=== PATIENT | male | born 1995 | race Hispanic/Latino ===

== ENCOUNTER 2019-01-03 09:02 | Emergency (ER) | payer MEDICAID, OTHER | END 2019-01-03 10:37 | disposition home or self-care (01) | LOC: EDH 09:02 | DX: R03.0 Elevated blood-pressure reading, without diagnosis of hypertension (principal) | CPT/HCPCS: 99281 ==

== ENCOUNTER → 2023-06-01 | Outpatient (CLI) | payer BC | END | disposition home or self-care (01) | LOC: RAH 08:57 | PROVIDERS: ATTEND Surgery | DX: K21.00 Gastro-esophageal reflux disease with esophagitis, without bleeding (principal); K22.70 Barrett's esophagus without dysplasia; K44.9 Diaphragmatic hernia without obstruction or gangrene | CPT/HCPCS: 74240 ==

== ENCOUNTER 2024-05-17 16:01 | Emergency (ER) | payer SELFPAY ==
[~2024-05-17] VITALS: Ht 182.9 cm; Wt 104.3 kg
--- NOTE | 2024-05-17 17:03 | ERN ---
ED Note History of Present Illness Stated Complaint: FINGER INJURY Time Seen by MD: 16:01 Time Seen by Midlevel: 16:01 Dictation: The patient is a 28-year-old male with no significant medical history who presents to the emergency department with complaint of right 4th digit swelling and redness onset Thursday. Patient denies any injury or insect bite. Denies any fevers. 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 Reported Medications Lisinopril (Lisinopril) 20 Mg Tablet, 1 TAB PO DAILY for 30 Days, #30 TAB 0 Refills 05/18/24 Past Medical History RN Note Reviewed/Agreed w/PFSH: Yes Review of System Dictation Constitutional: Negative for fever,chills, and weight loss Eyes: Negative for injury, pain,redness, and discharge ENT: Negative for injury,pain or swelling Cardiovascular: Negative for chest pain, palpitations, and edema Respiratory: Negative for shortness of breath, cough, and wheezing, Abdomen/GI: Negative for abdominal pain, nausea, vomiting, diarrhea, and constipation Back: Negative for injury and pain : Negative for injury, bleeding and discharge MS/Extremity: Positive for right 4th digit swelling and redness Skin: Negative for rash, and discoloration Neuro: Negative for headache, weakness, numbness, tingling, and seizure Psych: Negative for suicide ideation, homicidal ideation, and hallucinations Initial Vital Sign VS Vital Signs Date Time Temp Pulse Resp B/P (MAP) Pulse Ox O2 Delivery O2 Flow Rate FiO2 05/17/24 17:33 98.1 71 20 147/99 97 Room Air 0 05/17/24 18:50 21 Physical Exam Dictation Vital Signs reviewed General Appearance: Alert, oriented x 3, no acute distress, well developed, nourished. Head and Face: non-traumatic. Eyes: PERRL, pink conjunctivas, eyelid no trauma, anterior chamber with arcus senilis. Ears: Pinnas intact and no signs of trauma or erythema ear canals clear and no discharge TM no erythema Nose: No discharge, no bleeding. Oropharynx: Mouth normal, tongue pink. pharynx clear,no erythema, tonsils no exudates, no abscesses noted, mucous membrane moist Neck: Supple, non-tender, no thyromegaly, no masses, no JVD, no bruits Breast:Deferred Chest:No tenderness, no crepitus, no paradoxical movement, no retractions Lungs:Clear, well-ventilated, symmetric, no rales, no wheezing, no rhonchi, no stridor, good breath sounds bilaterally Heart: Regular rate, regular rhythm, no murmur, no gallops Vascular: no peripheral edema, Abdomen: Soft, positive bowel sounds, nondistended, no guarding, nontender, no rebound, no masses no hepatomegaly, no splenomegaly, no Brooks's sign, no hernias. Rectal: Deferred Genital: Deferred Neurological: Normal speech, motor function intact, sensory function intact Musculoskeletal: Neck nontender, full range of motion, back nontender, full range of motion, Extremities: nontender, full range of motion , 4th digit with erythema, swelling , full range of motion, no open wounds cap refill less than 2 seconds Skin: Color pink, dry, no turgor, no rash, no lacerations, no abrasions, no contusions. Lymphatic: Deferred Results (Laboratory/Radiology) Laboratory/Radiology REASON: 4th digit swelling ORDERING PHYSICIAN: ANASTASIA MATA PROCEDURE: FINGER RT - FINGER(S) 2+VWS RT RIGHT FOURTH FINGER RADIOGRAPHS - 2 VIEWS INDICATION: Fourth digit swelling COMPARISON: None FINDINGS: AP, lateral views. No acute fracture or subluxation identified. Subtle subcentimeter lytic lucency within the fourth proximal phalangeal head. Mild to moderate fourth digit soft tissue swelling. No radiopaque foreign body noted. IMPRESSION: Limited history provided. Marrow irregularity involving the third proximal phalangeal head for which dedicated high resolution gadolinium-enhanced MR imaging is advised for further evaluation. This could represent an osteoid osteoma or underlying abscess. Labs Reviewed?: Yes ED Course ED Course Orders Procedure Category Date Status Time Finger(S) 2+Vws Rt RAD 05/17/24 Resulted 16:37 Ketorolac 60mg/2ml PHA 05/17/24 Complete (Toradol 60mg/2ml) 17:00 Ceftriaxone 1g Vial PHA 05/17/24 Complete (Rocephine 1g Inj) 17:00 Current Medications Medications (Trade) Dose Ordered Sig/Isatu Route PRN Reason Start Time Stop Time Status Last Admin Dose Admin Ceftriaxone Sodium (ROCEphine 1G INJ) 1 gm ONCE ONCE IM 05/17/24 17:00 05/17/24 17:34 DC 05/17/24 17:55 Ketorolac Tromethamine (toRADol 60MG/ 2ML) 60 mg ONCE ONCE IM 05/17/24 17:00 05/17/24 17:34 DC 05/17/24 17:55 Vital Signs Date Time Temp Pulse Resp B/P (MAP) Pulse Ox O2 Delivery O2 Flow Rate FiO2 05/17/24 18:50 98.1 70 18 137/89 97 Room Air* 0 21 05/17/24 17:33 98.1 71 20 147/99 97 Room Air 0 Medical Decision Making MDM The patient is a 28-year-old male with no significant medical history who presents to the emergency department with complaint of right 4th digit swelling and redness onset Thursday. Patient denies any injury or insect bite. Denies any fevers. Patient was swelling and erythema to right with digit. X-ray showed concerned for osteosarcoma versus underlying abscess. Discussed case with Dr. Barfield orthopedic on-call. Dr. Ga was evaluated patient in ER. Instructed to follow up in 10 days and start Keflex treatment. If patient has worsened to return to ER. Differential diagnosis: Cellulitis, finger fracture, finger contusion Need for hospitalization: Patient does not meet criteria for hospitalization. There are no social concerns with this patient. DX & DISP Disposition: Discharge Departure Impression: Primary Impression: Swelling of right ring finger Additional Impression: Cellulitis Condition: Stable Scripts Cephalexin Monohydrate (Keflex) 500 Mg Cap 500 MG PO QID for 10 Days, #40 CAP Prov: ANASTASIA MATA [employer] ST[employer] HAND 05/17/24 Additional Instructions: Take your antibiotics as prescribed. You will need to follow up with in 10 days in his office if redness and swelling still present. If symptoms worsen please return to ER and state to cosult ortho FOLLOW-UP WITH PRIMARY CARE PROVIDER IN 1 TO 2 DAYS. TAKE MEDICATIONS DIRECTED HERE IN THE EMERGENCY ROOM. OKAY TO CONTINUE HOME MEDICATIONS UNLESS OTHERWISE DISCUSSED DURING YOUR VISIT IN THE EMERGENCY ROOM TODAY. RETURN TO YOUR NEAREST EMERGENCY ROOM IF SYMPTOMS WORSEN OR IF THERE IS NO IMPROVEMENT. CALL 911 IF YOU NEED IMMEDIATE ASSISTANCE. TAKE TYLENOL OR MOTRIN [id number] NEEDED AND IF NO CONTRAINDICATIONS ARE PRESENT. INCREASE ORAL HYDRATION. A WOUND CULTURE OR URINE CULTURE WAS ORDERED HERE IN THE EMERGENCY ROOM DEPARTMENT PLEASE FOLLOW-UP WITH PRIMARY CARE PROVIDER AND ADVISE THEM TO GET REPEAT PORTS FROM OUR FACILITY. IF YOU HAD ANY RAHEEM WRAP/SPLINTS THAT WERE APPLIED HERE, PLEASE DO NOT REMOVE THEM UNTIL YOU SEE YOUR PRIMARY CARE OR SPECIALTY. Referrals: EVANGELISTA GUTIERREZ (PCP) DEEP BARFIELD MD Time of Disposition: 18:27 I have examined patient, & reviewed all documents, & agreed W/ the Diagnosis, and Plan ANASTASIA MATA May 17, 2024 17:03 JUSTINA FLAHERTY DO May 19, 2024 08:17
--- NOTE | 2024-05-17 17:51 | HMCIMG ---
RIGHT FOURTH FINGER RADIOGRAPHS - 2 VIEWS INDICATION: Fourth digit swelling COMPARISON: None FINDINGS: AP, lateral views. No acute fracture or subluxation identified. Subtle subcentimeter lytic lucency within the fourth proximal phalangeal head. Mild to moderate fourth digit soft tissue swelling. No radiopaque foreign body noted. IMPRESSION: Limited history provided. Marrow irregularity involving the third proximal phalangeal head for which dedicated high resolution gadolinium-enhanced MR imaging is advised for further evaluation. This could represent an osteoid osteoma or underlying abscess.
[2024-05-17] MEDS: ketOROlac 60 MG VIAL (30MG/ML) IM ONE (17:55)
[2024-05-17] MEDS: cefTRIAXone 1G VIAL IM ONE (17:55)
[2024-05-17] MEDS ORDERED: CEPH500B PO (18:31)
--- NOTE | 2024-05-17 18:34 | NUR ---
DR MATTHEWS AT PT SIDE
[2024-05-17 18:50] VITALS: BP 137/89; PULSE 70; RESP 18; TEMP 98.1; O2SAT 97
[2024-05-18] MEDS ORDERED: LISI20TA24 PO (23:09)
== END 2024-05-17 18:53 | disposition home or self-care (01) ==
LOC: EDH 16:01
DX: L03.011 Cellulitis of right finger (principal); Z79.899 Other long term (current) drug therapy
CPT/HCPCS: 99284; 73140; 96372 ×2; J1885; J0696

== ENCOUNTER 2024-05-18 12:51 | Inpatient (IN) | payer SELFPAY ==
[~2024-05-18] VITALS: Ht 182.9 cm; Wt 105.7 kg
[2024-05-18] VITALS (18 sets, daily range): BP systolic 115–150; BP diastolic 55–90; PULSE 63–85; RESP 13–20; TEMP 97–97.9
[~2024-05-18 12:51] MED LIST: CEPH500B PO
[2024-05-18] MEDS ORDERED: VANCOMYCIN KIT 1 GM/250 ML IV.KIT IV ONE (13:00)
--- NOTE | 2024-05-18 13:07 | ERN ---
General Chief Complaint: Finger Injury Stated Complaint: FINGER PAIN Time Seen by MD: 12:56 History of Present Illness Initial Comments 28-year-old male, otherwise healthy, presents for right 4th digit swelling and redness for five days now. Patient denies any injury or insect bites. 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 He denies any trauma. He was evaluated at this facility yesterday with stable vital signs. The x-ray did show an irregularity. Dr. Woodard was consulted. The patient was given a dose of Ancef yesterday and he took cephalexin last night this morning. The patient returns today because reports that the swelling is getting worse and the pain is getting worse. 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 HEAD/FACE: No signs of trauma. EENT: No eye pain, no blurred vision, no tearing, no double vision, no ear pain, no ear discharge, no nose pain, no nasal congestion, no throat pain, no throat swelling, no mouth pain. RESPIRATORY: No cough, no orthopnea, no SOB, no stridor, no wheezing. CARDIOVASCULAR: No chest pain, no edema, no palpitations, no syncope. GASTROINTESTINAL/ABDOMINAL: No abdominal pain, no constipation, no diarrhea, no nausea, no vomiting. GENITOURINARY: No abnormal discharge, no dysuria, no frequent urination, no hematuria. No complaints of pain in the genitals. MUSCULOSKELETAL: Right 4th digit finger pain. INTEGUMENTARY: No change in color, no change in hair/nails, no dryness, no lesion, no lumps, no rash. NEUROLOGICAL/PSYCH: No anxiety, not depressed, no emotional problem, no headache, no numbness, no pre-existing deficit, no history of seizures, no tremors, no weakness. HEMATOLOGIC/LYMPHATIC: Not anemic, no history of blood clots, no apparent bleeding, no bruising, glands not swollen. All Systems Negative, Except as Noted. Physical Exam Physical Exam Dictation VITAL SIGNS: Reviewed. GENERAL APPEARANCE: Alert, oriented x3, no acute distress, obese. HEAD AND FACE: Non-traumatic. EYES: PERRL, pink conjunctivas, eyelid no trauma, anterior chamber clear. EARS: Pinnas intact and no signs of trauma or erythema. Ear canals clear and no discharge. TMs no erythema. NOSE: No discharge, no bleeding. OROPHARYNX: Mouth normal, teeth no caries, tongue pink. Pharynx clear, no erythema. Tonsils no exudates, no abscesses noted. Mucous membrane moist. NECK: Supple, non-tender, no thyromegaly, no masses, no JVD, no bruits. BREAST: Deferred. CHEST: No tenderness, no crepitus, no paradoxical movement, no retractions. LUNGS: Clear, well-ventilated, symmetric, no rales, no wheezing, no rhonchi, no stridor, good breath sounds bilaterally. HEART: Regular rate, regular rhythm, no murmur, no gallops. VASCULAR: No peripheral edema. ABDOMEN: Soft, positive bowel sounds, nondistended, no guarding, nontender, no rebound, no masses no hepatomegaly, no splenomegaly, no Brooks's sign, no hernias. RECTAL: Deferred. GENITAL: Deferred. NEUROLOGICAL: Normal speech, gross motor function intact, gross sensory function intact. MUSCULOSKELETAL: Erythema tenderness and pain to the right 4th digit dorsal side increase with palpation and movement, no pain or tenderness along the flexor side. Neurovascularly intact distally. No obvious open wounds or ulce rations. EXTREMITIES: Nontender, full range of motion. SKIN: Color pink, dry, no turgor, no rash, no lacerations, no abrasions, no contusions. LYMPHATICS: Deferred. MDM CC: Finger pain/ infection Historian: Patient Comorbidities: None Limitations by social determinants of health: None Differential diagnosis: Infection versus other Vital signs: Stable remained stable in the ER Consultation: Dr. Woodard. He recommends admission for an MRI. Treatment in ED: IV fluids, IV antibiotics Plan: Admission ED Course Vital Signs Date Time Temp Pulse Resp B/P (MAP) Pulse Ox O2 Delivery O2 Flow Rate FiO2 05/18/24 12:52 98.8 66 16 153/95 95 Room Air 0 DX & DISP Disposition: Inpatient Departure Impression: Primary Impression: Finger infection Condition: Stable Referrals: EVANGELISTA GUTIERREZ (PCP) JUSTINA FLAHERTY DO May 18, 2024 13:07
--- NOTE | 2024-05-18 13:44 | HP ---
[facility] HISTORY AND PHYSICAL Date of Service: May 18, 2024 Time of Service: 13:44 HISTORY OF PRESENT ILLNESS: Date of service: 05/18/2024, patient was seen in ER room one 28-year-old male with no significant past medical history who presented to the ER for further evaluation of 4th digit swelling and redness of the right hand ongoing for the past 4-5 days. Patient was seen in the ER yesterday and receiv ed a dose of IV Ancef and was discharged on a course of Keflex. Patient denies any trauma, injury, animal bite to the 4th finger. 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 Denies significant smoking, alcohol consumption or illicit drug use. Patient was seen by Dr. Barfield yesterday with recommendations for antibiotic therapy for management of cellulitis. Patient states that pain has progressively worsened and is worse with flexion of the finger. Redness and swelling has worsened as well. Patient denies any family history of malignancy. On presentation to the hospital, patient was noted to be afebrile with temperature of 98.8 F, blood pressure of 153/95. Patient had a x-ray of the fingers done yesterday where patient was noted to have marrow irregularity involving the 3rd proximal phalangeal head with recommendations for MRI. Patient will be admitted and will receive broad-spectrum IV antibiotics with vancomycin/cefepime, MRI of the hand will be obtained. Consultation with Dr. Barfield with Orthopedics will be requested as well as Infectious Disease. REVIEW OF SYSTEMS CONSTITUTIONAL: Denies fevers, chills, or night sweats. No unintentional weight loss reported. NEUROLOGICAL: Denies headache, amaurosis fugax, motor weakness, sensory deficit, vertigo/spinning sensation, gait abnormalities, or tremors. ENT: No hearing loss, otalgia, otorrhea, rhinitis, rhinorrhea, hoarseness, or sore throat. CARDIOVASCULAR: Denies any exertional angina, dyspnea on exertion, orthopnea, paroxysmal nocturnal dyspnea, palpitations, life-threatening arrhythmias, claudication. PULMONARY: Denies any shortness of breath, cough, phlegm/sputum, hemoptysis, pleuritic chest pain. SLEEP: Denies morning headaches, daytime somnolence or napping. Denies difficulty falling asleep, staying asleep, waking from sleep. Denies knowledge of snoring. GASTROINTESTINAL: Denies any type of dysphagia to either liquids or solids. Denies nausea, vomiting, pyrosis, early satiety, abdominal pain, diarrhea, constipation, or changes in stool consistency or caliber. Denies coffee-ground emesis, hematemesis, hematochezia, or melanotic stools. GENITOURINARY: Denies frequency, urgency, nocturia, hematuria or incontinence (Storage/Irritative symptoms.) Low urinary stream, straining to void, urinary intermittency or hesitancy, splitting of the voiding stream, terminal dribbling. ENDOCRINOLOGIC: Denies polyuria, polydipsia, polyphagia or heat/cold intolerances. HEMATOLOGIC: Denies thrombophilia/previous clots, or coagulopathy/bleeding disorders. ONCOLOGIC: Denies personal history of malignancy. DERMATOLOGIC: Redness, swelling, pain involving the 4th finger of the right hand PSYCHIATRIC: Denies any suicidal or homicidal ideation. Denies hallucinations. PAST MEDICAL HISTORY: Denies history of significant medical history PAST SURGICAL HISTORY: History of hiatal hernia repair in [facility] in 2023 PAST SOCIAL HISTORY: Denies active smoking, drinks socially, denies illicit drug use, patient has three pet cats at home denies any cat bites FAMILY HISTORY: Denies pertinent family history Coded Allergies: No Known Drug Allergies (Unverified Allergy, Intermediate, 05/17/24) PHYSICAL EXAM GENERAL APPEARANCE: The patient is awake, alert, and oriented, in no acute cardiopulmonary distress. NEUROLOGICAL: Cranial nerves II-XII grossly intact. Motor is 5/5 in bilateral upper and lower extremities proximal to distal. No sensory deficits. HEENT: Face is symmetric. Pupils are equal and reactive. Extraocular movements are intact. NECK: Supple. No JVD. No thyromegaly. No submental, submandibular, pre- /postauricular, occipital or supraclavicular lymphadenopathy. CHEST: Normal chest expansion. No Telemetry. LUNGS: Absence of any rales, rhonchi or any wheezing. CARDIOVASCULAR: Regular. S1 and S2 normal. No appreciable rubs, murmurs or gallops. ABDOMEN: Soft, nontender, and nondistended. There is no rebound, voluntary guarding, or rigidity. : Deferred. No Hdz. EXTREMITIES: Erythema tenderness and pain to the right 4th digit dorsal side increase with palpation and movement, pain involved with flexion and extension of the 4th digit of the right. Neurovascularly intact distally. No obvious open wounds or ulcerations. SKIN: As noted above Vital Sign (Last 24 Hours) 05/18/24 12:52 Temp 98.8 Pulse 66 Resp 16 B/P (MAP) 153/95 Pulse Ox 95 O2 Delivery Room Air O2 Flow Rate 0 LABS: Laboratory Tests Test 05/18/24 13:36 White Blood Count 7.6 K/uL (4.8-10.8) Red Blood Count 5.07 MIL/uL (4.50-6.20) Hemoglobin 14.9 g/dL (14.0-18.0) Hematocrit 43.4 % (42-54) Mean Corpuscular Volume 85.6 fL (79-99) Mean Corpuscular Hemoglobin 29.4 pg (27.0-33.0) Mean Corpuscular Hemoglobin Concent 34.3 g/dL (32.0-36.0) Red Cell Distribution Width 12.3 % (11.0-15.5) Platelet Count 246 K/uL (130-400) Mean Platelet Volume 11.3 fL (7.5-10.5) H Immature Granulocyte % (Auto) 0.0 % (0-1) Neutrophils (%) (Auto) 65.9 % (40.0-77.0) Lymphocytes (%) (Auto) 22.5 % (21.0-51.0) Monocytes (%) (Auto) 8.0 % (3.0-13.0) Eosinophils (%) (Auto) 2.9 % (0.0-8.0) Basophils (%) (Auto) 0.7 % (0.0-5.0) Neutrophils # (Auto) 5.0 K/uL (1.8-7.7) Lymphocytes # (Auto) 1.7 K/uL (1.0-4.8) Monocytes # (Auto) 0.6 K/uL (0.1-1.0) Eosinophils # (Auto) 0.22 K/uL (0.00-0.70) Basophils # (Auto) 0.05 K/uL (0.00-0.20) Absolute Immature Granulocyte (auto 0.00 K/uL (0-1) Nucleated Red Blood Cells 0.0 % (0.0-0.19) Erythrocyte Sedimentation Rate Pending Sodium Level 140 mmol/L (136-145) Potassium Level 4.0 mmol/L (3.5-5.1) Chloride Level 103 mmol/L (101-111) Carbon Dioxide Level 26 mmol/L (21-32) Blood Urea Nitrogen 19 mg/dL (7-18) H Creatinine 1.1 mg/dL (0.5-1.3) Glomerular Filtration Rate Calc 95 mL/min (>90) Random Glucose 122 mg/dL (70-105) H Total Calcium 9.1 mg/dL (8.5-10.1) Lactate Dehydrogenase 185 U/L (81-234) C-Reactive Protein, Quantitative 7.00 mg/L (0.5-3.0) H Current Medications Medications (Trade) Dose Ordered Sig/Isatu Route PRN Reason Start Time Stop Time Status Last Admin Dose Admin Acetaminophen (TYLenol 325MG TAB) 650 mg Q6H PRN PO MILD PAIN (1-3) 05/18/24 14:00 06/17/24 13:59 Famotidine (Pepcid 20mg Vial) 20 mg BID IV 05/18/24 21:00 06/17/24 20:59 Ketorolac Tromethamine (toRADol) 15 mg Q12H PRN IV MODERATE PAIN (4-6) 05/18/24 14:00 05/23/24 13:59 Morphine Sulfate (morPHINE 2MG SYG) 2 mg Q6H PRN IVP SEVERE PAIN (7-10) 05/18/24 14:00 05/25/24 13:59 Sodium Chloride 1,000 ml @ 75 mls/hr [id number] IV 05/18/24 14:00 06/17/24 13:59 DIAGNOSTICS / RADIOLOGY: SERVICE [id number] REASON: 4th digit swelling ORDERING PHYSICIAN: 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 No acute fracture or subluxation identified. Subtle subcentimeter lytic lucency within the fourth proximal phalangeal head. Mild to moderate fourth digit soft tissue swelling. No radiopaque foreign body noted. IMPRESSION: Limited history provided. Marrow irregularity involving the third proximal phalangeal head for which dedicated high resolution gadolinium-enhanced MR imaging is advised for further evaluation. This could represent an osteoid osteoma or underlying abscess. DICTATED BY: CASEY SCHAEFER MD DATE: 05/17/241746 ELECTRONICALLY SIGNED BY: CASEY SCHAEFER MD DATE: 05/17/241750 ASSESSMENT: Progressive right Fourth digit erythema, swelling with concerns for progressive complicated cellulitis/ abscess, POA UTI, POA Failure of outpatient therapy, POA Prior history of hiatal hernia repair in 2023, POA PLAN: 28-year-old male presenting with progressive redness, erythema involving the right 4th finger. Patient was seen in the ER yesterday and receive IV antibiotics and was discharged on p.o. Keflex. Patient states that erythema pain and swelling has worsened today with pain on finger flexion and extension. We will need to rule out any complicated abscess, septic joint, osteomyelitis, tenosynovitis, etc. Plan will be to obtain MRI of the finger today Consultation with Dr. Barfield with orthopedic surgery has been requested, will need OR evaluation We will request consultation with Infectious Disease Broad-spectrum antibiotics with IV vancomycin/cefepime, blood cultures will be obtained, we will check CRP, procalcitonin, f/u urine culture, urine G/C IV hydration with NS at 75 cc an hour IV Toradol for moderate pain and IV morphine for severe pain All labs will be repeated in the morning Date of service: 05/18/2024 Plan of care was discussed with patient at bedside, Noble Vasquez MD Advanced Care Planning: Which of the following were discussed: Hospice care: Yes __ No _X_ Therapeutic options: Yes _X_ No __ Advance directives: Yes _X_ No __ Other discussions: Discussed with who?: Patient Voluntary nature of this service was explained to the patient? Yes _x_ No __ Amount of time spent: 17 minutes NOBLE VASQUEZ MD May 18, 2024 13:44
[2024-05-18 13:49] LABS: BASOPHILS # (AUTO) 0.05 K/uL (0.00-0.20); BASOPHILS % (AUTO) 0.7 % (0.0-5.0); EOSINOPHILS # (AUTO) 0.22 K/uL (0.00-0.70); EOSINOPHILS % (AUTO) 2.9 % (0.0-8.0); HEMATOCRIT 43.4 % (42-54); LYMPHOCYTES # (AUTO) 1.7 K/uL (1.0-4.8); LYMPHOCYTES % (AUTO) 22.5 % (21.0-51.0); MEAN CORPUSCULAR HEMOGLOBIN 29.4 pg (27.0-33.0); MEAN CORPUSCULAR HGB CONC 34.3 g/dL (32.0-36.0); MEAN CORPUSCULAR VOLUME 85.6 fL (79-99); MONOCYTES # (AUTO) 0.6 K/uL (0.1-1.0); NEUTROPHILS % (AUTO) 65.9 % (40.0-77.0); PLATELET COUNT (AUTO) 246 K/uL (130-400); RED BLOOD CELL COUNT(AUTO) 5.07 MIL/uL (4.50-6.20); RED CELL DISTRIBUTION WIDTH 12.3 % (11.0-15.5); WHITE BLOOD COUNT (AUTO) 7.6 K/uL (4.8-10.8)
[2024-05-18 13:56] LABS: CREATININE 1.1 mg/dL (0.5-1.3)
[2024-05-18] MEDS ORDERED: morPHINE 2 MG SYG IVP PRN (14:00)
[2024-05-18] MEDS ORDERED: VANCOMYCIN PROTOCOL PER PHARMACY IV SCH (14:00)
[2024-05-18] MEDS ORDERED: ketOROlac 15MG/ML VIAL (15MG/ML) IV PRN (14:00)
[2024-05-18] MEDS: 0.9%NACL 1000ML 1,000 ML IV SCH ×2 (14:33→20:00)
[2024-05-18] MEDS: LACTATED RINGERS 1000ML 1,000 ML IV ONE (14:34)
[2024-05-18 14:52] LABS: ERYTHROCYTE SEDIMENTATION RATE 24 MM/HR (0-15)
[2024-05-18] MEDS ORDERED: ZOSYN 3.375GM +NS 50ML IV ONE (15:00)
[2024-05-18 15:15] LABS: APPEARANCE,URINE CLEAR (CLEAR); BILIRUBIN,URINE NEGATIVE (NEGATIVE); COLOR,URINE LIGHT-YELLOW (YELLOW); GLUCOSE, URINE (UA) NEGATIVE (NEGATIVE); KETONES,URINE NEGATIVE (NEGATIVE); LEUKOCYTE ESTERASE ,URINE 250 Leu/uL (NEGATIVE); NITRATE,URINE NEGATIVE (NEGATIVE); OCCULT BLOOD,URINE NEGATIVE (NEGATIVE); PROTEIN,URINE NEGATIVE (NEGATIVE)
[2024-05-18 15:16] LABS: ADD UA MICROSCOPIC YES
[2024-05-18 15:22] LABS: AMPHET/METH SCREEN,URINE NEGATIVE (NEGATIVE); BACTERIA,URINE RARE /HPF (None Seen); BARBITURATE SCREEN, URINE NEGATIVE (NEGATIVE); BENZODIAZEPINES SCREEN,URINE NEGATIVE (NEGATIVE); CANNABINOID SCREEN,URINE NEGATIVE (NEGATIVE); COCAINE SCREEN,URINE NEGATIVE (NEGATIVE); MUCUS,URINE RARE LPF (None Seen); OPIATE SCREEN,URINE NEGATIVE (NEGATIVE); PHENCYCLIDINE SCREEN,URINE NEGATIVE (NEGATIVE); SQUAMOUS EPITHELIAL CELL,UR RARE /HPF (0-2); WBC,URINE 26-50 /HPF (0-1)
[2024-05-18] MEDS: VANCOMYCIN 2GM/500 ML BAG 500 ML IV ONE (15:27)
--- NOTE | 2024-05-18 15:59 | NUR ---
PT TO MRI
[2024-05-18] MEDS ORDERED: GADOTERATE MEGLUMINE 10 MMOL/20 ML VIAL IV ONE (17:02)
--- NOTE | 2024-05-18 17:02 | HMCIMG ---
MR HAND RIGHT WWO HISTORY: Finger infection COMPARISON: None TECHNIQUE: MRI of the right hand was performed utilizing multiple pulse sequences in axial, coronal and sagittal planes. Patient was given 20 cc of cloudy scan through intravenous route. FINDINGS: Increased signal intensity is seen within the soft tissue of forefinger suggestive of cellulitis. No abnormal signal intensity is seen of the visualized bony structure to suggest osteomyelitis. No fracture or dislocation is seen. IMPRESSION: 1. Cellulitis of fourth finger. No MR evidence of osteomyelitis seen.
[2024-05-18] MEDS: CEFTRIAXONE 2GM VIAL IVPB SCH (17:51)
[2024-05-18] MEDS ORDERED: ceFEPime HCL 2 GM VIAL IVPB SCH (18:00)
[2024-05-18] MEDS ORDERED: LIDOCAINE PF 100MG/5ML (2%) SYRINGE 5ML ONE (18:19)
--- NOTE | 2024-05-18 18:19 | NUR ---
TO OR AT THIS TIME
[2024-05-18] MEDS ORDERED: SUCCINYLCHOLINE CHLORIDE 20 MG/ML 10 ML VIAL ONE (18:20)
[2024-05-18] MEDS ORDERED: proPOFol 10 MG/ML 20ML VIAL IV ONE (18:20)
[2024-05-18] MEDS ORDERED: MIDAZOLAM HCL 1 MG/ML 2ML VIAL ONE (18:20)
[2024-05-18] MEDS ORDERED: rocuRONium bROMide 10MG/1ML 5ML VL ONE (18:21)
--- NOTE | 2024-05-18 18:36 | CONS ---
CONSULT NOTE: REQUESTING PHYSICIAN: Dr. Vasquez REASON FOR CONSULT: Right ring digit infection HISTORY OF PRESENT ILLNESS: The patient is a 28-year-old male that presented to the emergency room yesterday and I saw her briefly and recommended for him to be sent home with p.o. antibiotics and then follow-up in my office or return to the emergency room if the symptoms deteriorated. The patient had a few days' history of pain to the right digit PIP joint inflammation that developed into redness and painful range of motion. The patient denies any injury skin abrasions punctures or any other symptom. He denies any infections recently. The patient presented to the emergency room again today reporting worsening of the symptoms and we are contacted again and I agree that the patient is to be admitted and an MRI performed to assure that there is no deeper infection going on. The patient said rate and C-reactive protein were elevated and for this reason I opted to bring him to the operating room for an I and D of the joint. Also in the laboratory was found that the patient has an active urinary tract infection. 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 FAMILY HISTORY: No relevant REVIEW OF SYSTEMS: Negative PHYSICAL EXAMINATION: Awake, alert and oriented in mild distress secondary to pain. Examination of the head and neck was within normal limits as was as his neck. The chest was clear to auscultation, heart with regular rate and rhythm with no murmur. The abdomen was soft and nontender. The genital and rectal exam were deferred. Examination of the extremities was normal except for the right 4th digit that had a deeper redness in the PIP joint area with swelling and decreased range of motion secondary to pain. RADIOLOGIC STUDIES: X-ray done yesterday did not demonstrate any specific trauma. MRI of today demonstrated the presence of severe inflammation call only as a cellulitis. In my opinion there is a slight amount of fluid collection in the dorsal aspect of the joint. ASSESSMENT: Right 5th digit PIP joint cellulitis possible septic arthritis. PLAN: The patient will be admitted for right 4th digit incision and drainage, arthrotomy irrigation and debridement and closure. The patient start the procedure, need for it, risks and benefits and possible complications and agreed signed the consent form. DEEP MATTHEWS MD May 18, 2024 18:36
[2024-05-18] MEDS ORDERED: FENTanyl CITRate PF 50 MCG/1 ML 2ML VIAL ONE (18:48)
[2024-05-18] MEDS: ceFAZolin SODIUM 1 GM VIAL ONE (18:57)
--- NOTE | 2024-05-18 19:36 | OP ---
Operative Note: DATE OF PROCEDURE: 05/18/24 SURGEON: DEEP MATTHEWS MD ARRESTING GEAR OPERATOR: [Gerard Wagoner CFA] ANESTHESIA: [General anesthesia] ANESTHESIOLOGIST/TUNNEL FORM PLACING SUPERVISOR: [Prashanth Ruiz CRNA] PREOPERATIVE DIAGNOSIS: [Right ring digit PIP septic arthritis] POSTOPERATIVE DIAGNOSIS: [Right ring digit subcutaneous abscess PIP joint area with no joint involvement] PROCEDURE: [Right ring digit incision and drainage of subcutaneous abscess, excisional debridement and irrigation with wound closure] ESTIMATED BLOOD LOSS: [Less than 10 mL] INDICATIONS: [The patient is a 28-year-old male with history of several days of redness to the right ring digit. There was no history of any type of penetration, scratches or puncture wounds. The patient reported no history of any medical problems or recent infections but in the further workup it was found that he had a urinary tract infection. Because of the increment in the redness within 24 hours after he was seen initially in the ER he will return as requested and we admitted him for an the formal irrigation and debridement and exploration of the joint. The procedure was explained to the patient who understood the risks, benefits and possible complications and agreed to sign the consent form] DESCRIPTION OF PROCEDURE: [After adequate general anesthesia was achieved the patient's right upper extremity was prepped and draped in the usual manner. Using a quarter-inch Raj drain we proceeded to use it as a tourniquet applied to the base of the ring digit and then a longitudinal incision was carried down in the dorsal aspect of finger centered on the PIP joint extending from the middle portion of the middle phalanx to the middle portion of the proximal phalanx. Immediately after going through the skin a very obvious abscess was present with some solid tissue that was purulent also. Specimen was taken for cultures. With the use of the rongeur as well as scissors we proceeded to remove all the necrotic tissue we noticed that the purulent material was extended now into the ulnar side of the subcutaneous tissue. We proceeded then to copiously irrigate the wound and further debridement was performed noticing that there was no penetration into the joint the tendon being completely intact and after flexing the joint to more than 95 we found no production of purulent material through the joint. The wound was copiously irrigated followed by scrubbing of the wound with a Betadine scrub brush and after this was completed we then proceeded to again irrigate the wound and then proceeded to close this wound with a approximation of the skin edges with 4. 0 nylon simple stitches. At the completion of this closure we proceeded to applied Xeroform followed by 4x4s and a 1 in Kerlix roll of gauze to immobilize the finger in extension. After tape was applied around the finger we proceeded then to remove the drapes and the patient was then awakened and extubated taken to recovery room for follow-up by anesthesia. There were no complications with the procedure] DEEP MATTHEWS MD May 18, 2024 19:36
[2024-05-18] MEDS ORDERED: DiphenhydrAMINE HCL 50 MG/ML VIAL IVP PRN (20:00)
[2024-05-18] MEDS ORDERED: HYDROcodone/APAP 5/325 1 TAB TABLET PO PRN (20:00)
[2024-05-18] MEDS: MEPERIDINE-PF 50 MG/ML SYG ONE (20:02)
[2024-05-18] MEDS: FAMOTIDINE 20MG VIAL IV SCH (20:42)
[2024-05-18] MEDS: ketOROlac 30MG VIAL (30MG/ML) IV PRN (20:43)
[2024-05-18] MEDS: VANCOMYCIN 1G/250ML KIT 250 ML IV SCH (21:29)
[2024-05-18] MEDS ORDERED: LISI20TA24 PO (23:09)
[2024-05-19] VITALS (8 sets, daily range): BP systolic 111–141; BP diastolic 57–82; PULSE 60–73; RESP 17–19; TEMP 97.8–99.1; O2SAT 100
[2024-05-19 04:13] LABS: BASOPHILS # (AUTO) 0.04 K/uL (0.00-0.20); BASOPHILS % (AUTO) 0.5 % (0.0-5.0); EOSINOPHILS # (AUTO) 0.12 K/uL (0.00-0.70); EOSINOPHILS % (AUTO) 1.4 % (0.0-8.0); HEMATOCRIT 38.3 % (42-54); IMMATURE GRANULOCYTE ABSOLUTE 0.03 K/uL (0-1); MEAN CORPUSCULAR HEMOGLOBIN 29.4 pg (27.0-33.0); MEAN CORPUSCULAR HGB CONC 34.2 g/dL (32.0-36.0); MEAN CORPUSCULAR VOLUME 86.1 fL (79-99); MONOCYTES # (AUTO) 0.7 K/uL (0.1-1.0); MONOCYTES % (AUTO) 8.1 % (3.0-13.0); NEUTROPHILS # (AUTO) 5.9 K/uL (1.8-7.7); NEUTROPHILS % (AUTO) 66.7 % (40.0-77.0); PLATELET COUNT (AUTO) 207 K/uL (130-400); RED BLOOD CELL COUNT(AUTO) 4.45 MIL/uL (4.50-6.20); RED CELL DISTRIBUTION WIDTH 12.2 % (11.0-15.5); WHITE BLOOD COUNT (AUTO) 8.8 K/uL (4.8-10.8)
[2024-05-19 04:24] LABS: CREATININE 0.9 mg/dL (0.5-1.3); POTASSIUM 4.1 mmol/L (3.5-5.1)
--- NOTE | 2024-05-19 09:41 | PN ---
INFECTIOUS DISEASE PROGRESS NOTE Date of Service: May 19, 2024 SUBJECTIVE: This is a 28-year-old male patient with past medical history of hypertension, previous I&D of gluteal abscesses as an infant and hiatal hernia repair one year ago. Patient presented to the emergency room with chief complaint of progressiv e erythema and pain to the right 4th finger. Patient was taking oral cephalexin but did not see any improvement and decided to come to the ER for evaluation. Denied fever or chills. A MRI of the right hand done yesterday showed an increased signal intensity is seen within the soft tissue of forefinger suggestive of cellulitis of the right 4th finger. Patient underwent an incis ion, drainage and debridement yesterday for septic arthritis. ESR was slightly elevated at 24 the WBC was normal on admission at 7.6. A urinalysis was positive. Patient has been started on vancomycin and ceftriaxone. REVIEW OF SYSTEMS CONSTITUTIONAL: Denies fever, chills, or fatigue. HEAD/FACE: No signs of trauma. EENT: Denies eye pain, blurred vision, double vision, or light sensitivity. RESPIRATORY: Denies shortness of breath, cough, wheezing CARDIOVASCULAR: Denies chest pain, palpitation, syncope GASTROINTESTINAL/ABDOMINAL: Denies abdominal pain, constipation, diarrhea, nausea or vomiting. GENITOURINARY: Denies dysuria or hematuria. MUSCULOSKELETAL: Pain to the Right 4th finger. INTEGUMENTARY: Redness to the right 4th finger. NEUROLOGICAL/PSYCH: Denies anxiety, depression, heat or cold intolerance. PHYSICAL EXAM EYES: Anicteric. Pupils equal and reactive. HENT: No oral thrush seen, moist Oral mucosa. NECK: Supple, no JVD or thyromegaly. LUNGS: Good air entry. No rales, no rhonchi. CARDIOVASCULAR: S1, S2 regular. No murmur heard. ABDOMEN: Soft, non tender, bowel sounds present, no organomegaly CENTRAL NERVOUS SYSTEM: Awake, alert, oriented x 3. SKIN: No rashes, no swelling. LYMPHATICS: No peripheral lymphadenopathy MUSCULOSKELETAL: No joint swelling, erythema or tenderness. EXTREMITIES: No cyanosis or clubbing. Right 4th finger incision with sutures. BACK: No deformity, no pressure ulcer. GENITOURINARY: No dysuria or hematuria. Vital Sign (Last 12 Hours) 05/18/24 05/18/24 05/18/24 05/19/24 22:00 22:30 23:30 00:30 Pulse 63 85 65 60 B/P (MAP) 119/55 116/57 115/62 113/57 Pulse Ox 97 97 97 97 05/19/24 05/19/24 05/19/24 01:30 02:30 07:48 Temp 98.1 98.4 Pulse 62 73 65 Resp 17 19 B/P (MAP) 111/58 120/71 135/75 Pulse Ox 99 99 97 O2 Delivery Room Air Room Air Intake & Output (last 24hrs) 05/18/24 05/18/24 05/19/24 14:59 22:59 06:59 Intake Total 200.0 ml 250.0 ml Output Total 800 ml Balance 200.0 ml -550.0 ml LABS: Laboratory: Test 05/19/24 03:50 05/18/24 14:45 05/18/24 13:36 Range/Units White Blood Count 8.8 4.8-10.8 K/uL Red Blood Count 4.45 L 4.50-6.20 MIL/uL Hemoglobin 13.1 L 14.0-18.0 g/dL Hematocrit 38.3 L 42-54 % Mean Corpuscular Volume 86.1 79-99 fL Mean Corpuscular Hemoglobin 29.4 27.0-33.0 pg Mean Corpuscular Hemoglobin Concent 34.2 32.0-36.0 g/dL Red Cell Distribution Width 12.2 11.0-15.5 % Platelet Count 207 130-400 K/uL Mean Platelet Volume 11.3 H 7.5-10.5 fL Immature Granulocyte % (Auto) 0.3 0-1 % Neutrophils (%) (Auto) 66.7 40.0-77.0 % Lymphocytes (%) (Auto) 23.0 21.0-51.0 % Monocytes (%) (Auto) 8.1 3.0-13.0 % Eosinophils (%) (Auto) 1.4 0.0-8.0 % Basophils (%) (Auto) 0.5 0.0-5.0 % Neutrophils # (Auto) 5.9 1.8-7.7 K/uL Lymphocytes # (Auto) 2.0 1.0-4.8 K/uL Monocytes # (Auto) 0.7 0.1-1.0 K/uL Eosinophils # (Auto) 0.12 0.00-0.70 K/uL Basophils # (Auto) 0.04 0.00-0.20 K/uL Absolute Immature Granulocyte (auto 0.03 0-1 K/uL Nucleated Red Blood Cells 0.0 0.0-0.19 % Sodium Level 142 136-145 mmol/L Potassium Level 4.1 3.5-5.1 mmol/L Chloride Level 104 101-111 mmol/L Carbon Dioxide Level 27 21-32 mmol/L Blood Urea Nitrogen 15 7-18 mg/dL Creatinine 0.9 0.5-1.3 mg/dL Glomerular Filtration Rate Calc 121 >90 mL/min Random Glucose 101 70-105 mg/dL Total Calcium 8.5 8.5-10.1 mg/dL Urine Color LIGHT-YELLOW YELLOW Urine Appearance CLEAR CLEAR Urine pH 6.0 5.0-8.0 Urine Specific [place] 1.028 1.001-1.031 Urine Protein NEGATIVE NEGATIVE mg/dL Urine Glucose (UA) NEGATIVE NEGATIVE mg/dL Urine Ketones NEGATIVE NEGATIVE mg/dL Urine Occult Blood NEGATIVE NEGATIVE Urine Nitrate NEGATIVE NEGATIVE Urine Bilirubin NEGATIVE NEGATIVE mg/dL Urine Urobilinogen 2.0 H 0.2-1.0 mg/dL Urine Leukocyte Esterase 250 H NEGATIVE Andrzej/uL Urine RBC 2-5 H 0-1 /HPF Urine WBC 26-50 H 0-1 /HPF Urine Squamous Epithelial Cells RARE 0-2 /HPF Urine Bacteria RARE None Seen /HPF Urine Opiates Screen NEGATIVE NEGATIVE Urine Barbiturates Screen NEGATIVE NEGATIVE Urine Phencyclidine Screen NEGATIVE NEGATIVE Urine Amphetamines Screen NEGATIVE NEGATIVE Urine Benzodiazepines Screen NEGATIVE NEGATIVE Urine Cocaine Screen NEGATIVE NEGATIVE Urine Marijuana (THC) Screen NEGATIVE NEGATIVE Erythrocyte Sedimentation Rate 24 H 0-15 MM/HR Lactate Dehydrogenase 185 81-234 U/L C-Reactive Protein, Quantitative 7.00 H 0.5-3.0 mg/L Procalcitonin < 0.05 L 0.05-0.5 ng/mL ASSESSMENT: Right 4th finger cellulitis. Right 4th finger septic arthritis, status post I&D and debridement. Asymptomatic Urinary tract infection. Hypertension. Obesity. PLAN: Continue vancomycin per pharmacy protocol. Continue ceftriaxone. Will give tetanus shot. Wound care as recommended by Orthopedics surgeon. Continue pain management. We will follow up on the culture results. Thank you for allowing ID to participate in the care of this patient. This case was reviewed and discussed with my supervising physician and the above assessment and plan was formulated and agreed upon. ATTESTATION BY PHYSICIAN I have seen and examined the patient. I reviewed the documentation, medical decision making, and treatment plan as noted by the mid-level provider above. I agree with the findings and plan of care. FREDERICK FALLON MD, [facility] May 19, 2024 09:41
--- NOTE | 2024-05-19 12:51 | PN ---
[facility] PROGRESS NOTE Date of Service: May 19, 2024 Time of Service: 12:49 SUBJECTIVE: Patient is seen and examined at bedside, comfortably in bed, he is status post irrigation and debridement 4th finger right hand, by orthopedic physician today, tolerated the procedure well, he is getting IV antibiotics, getting good pain control with current medical management. Alert oriented x3. Results of culture positive for Gram-positive cocci, discussed with the patient. REVIEW OF SYSTEMS CONSTITUTIONAL: Denies fevers, chills, or night sweats. No unintentional weight loss reported. NEUROLOGICAL: Denies headache, amaurosis fugax, motor weakness, sensory deficit, vertigo/spinning sensation, gait abnormalities, or tremors. ENT: No hearing loss, otalgia, otorrhea, rhinitis, rhinorrhea, hoarseness, or sore throat. CARDIOVASCULAR: Denies any exertional angina, dyspnea on exertion, orthopnea, paroxysmal nocturnal dyspnea, palpitations, life-threatening arrhythmias, claudication. PULMONARY: Denies any shortness of breath, cough, phlegm/sputum, hemoptysis, pleuritic chest pain. SLEEP: Denies morning headaches, daytime somnolence or napping. Denies difficulty falling asleep, staying asleep, waking from sleep. Denies knowledge of snoring. GASTROINTESTINAL: Denies any type of dysphagia to either liquids or solids. Denies nausea, vomiting, pyrosis, early satiety, abdominal pain, diarrhea, constipation, or changes in stool consistency or caliber. Denies coffee-ground emesis, hematemesis, hematochezia, or melanotic stools. GENITOURINARY: Denies frequency, urgency, nocturia, hematuria or incontinence (Storage/Irritative symptoms.) Low urinary stream, straining to void, urinary intermittency or hesitancy, splitting of the voiding stream, terminal dribbling. ENDOCRINOLOGIC: Denies polyuria, polydipsia, polyphagia or heat/cold intolerances. HEMATOLOGIC: Denies thrombophilia/previous clots, or coagulopathy/bleeding disorders. ONCOLOGIC: Denies personal history of malignancy. DERMATOLOGIC: Redness, swelling, pain involving the 4th finger of the right hand PSYCHIATRIC: Denies any suicidal or homicidal ideation. Denies hallucinations. PHYSICAL EXAM GENERAL APPEARANCE: The patient is awake, alert, and oriented, in no acute cardiopulmonary distress. NEUROLOGICAL: Cranial nerves II-XII grossly intact. Motor is 5/5 in bilateral upper and lower extremities proximal to distal. No sensory deficits. HEENT: Face is symmetric. Pupils are equal and reactive. Extraocular movements are intact. NECK: Supple. No JVD. No thyromegaly. No submental, submandibular, pre- /postauricular, occipital or supraclavicular lymphadenopathy. CHEST: Normal chest expansion. No Telemetry. LUNGS: Absence of any rales, rhonchi or any wheezing. CARDIOVASCULAR: Regular. S1 and S2 normal. No appreciable rubs, murmurs or gallops. ABDOMEN: Soft, nontender, and nondistended. There is no rebound, voluntary guarding, or rigidity. : Deferred. No Hdz. EXTREMITIES: Erythema tenderness and pain to the right 4th digit dorsal side increase with palpation and movement, pain involved with flexion and extension of the 4th digit of the right. Neurovascularly intact distally. No obvious open wounds or ulcerations. SKIN: As noted above Vital Signs (last 8hr) Date Time Temp Pulse Resp B/P (MAP) Pulse Ox O2 Delivery O2 Flow Rate FiO2 05/19/24 11:34 99.1 64 19 141/82 99 Room Air 05/19/24 07:48 98.4 65 19 135/75 97 Room Air LABS: Laboratory: Test 05/19/24 03:50 05/18/24 14:45 05/18/24 13:36 Range/Units White Blood Count 8.8 4.8-10.8 K/uL Red Blood Count 4.45 L 4.50-6.20 MIL/uL Hemoglobin 13.1 L 14.0-18.0 g/dL Hematocrit 38.3 L 42-54 % Mean Corpuscular Volume 86.1 79-99 fL Mean Corpuscular Hemoglobin 29.4 27.0-33.0 pg Mean Corpuscular Hemoglobin Concent 34.2 32.0-36.0 g/dL Red Cell Distribution Width 12.2 11.0-15.5 % Platelet Count 207 130-400 K/uL Mean Platelet Volume 11.3 H 7.5-10.5 fL Immature Granulocyte % (Auto) 0.3 0-1 % Neutrophils (%) (Auto) 66.7 40.0-77.0 % Lymphocytes (%) (Auto) 23.0 21.0-51.0 % Monocytes (%) (Auto) 8.1 3.0-13.0 % Eosinophils (%) (Auto) 1.4 0.0-8.0 % Basophils (%) (Auto) 0.5 0.0-5.0 % Neutrophils # (Auto) 5.9 1.8-7.7 K/uL Lymphocytes # (Auto) 2.0 1.0-4.8 K/uL Monocytes # (Auto) 0.7 0.1-1.0 K/uL Eosinophils # (Auto) 0.12 0.00-0.70 K/uL Basophils # (Auto) 0.04 0.00-0.20 K/uL Absolute Immature Granulocyte (auto 0.03 0-1 K/uL Nucleated Red Blood Cells 0.0 0.0-0.19 % Sodium Level 142 136-145 mmol/L Potassium Level 4.1 3.5-5.1 mmol/L Chloride Level 104 101-111 mmol/L Carbon Dioxide Level 27 21-32 mmol/L Blood Urea Nitrogen 15 7-18 mg/dL Creatinine 0.9 0.5-1.3 mg/dL Glomerular Filtration Rate Calc 121 >90 mL/min Random Glucose 101 70-105 mg/dL Total Calcium 8.5 8.5-10.1 mg/dL Urine Color LIGHT-YELLOW YELLOW Urine Appearance CLEAR CLEAR Urine pH 6.0 5.0-8.0 Urine Specific [place] 1.028 1.001-1.031 Urine Protein NEGATIVE NEGATIVE mg/dL Urine Glucose (UA) NEGATIVE NEGATIVE mg/dL Urine Ketones NEGATIVE NEGATIVE mg/dL Urine Occult Blood NEGATIVE NEGATIVE Urine Nitrate NEGATIVE NEGATIVE Urine Bilirubin NEGATIVE NEGATIVE mg/dL Urine Urobilinogen 2.0 H 0.2-1.0 mg/dL Urine Leukocyte Esterase 250 H NEGATIVE Andrzej/uL Urine RBC 2-5 H 0-1 /HPF Urine WBC 26-50 H 0-1 /HPF Urine Squamous Epithelial Cells RARE 0-2 /HPF Urine Bacteria RARE None Seen /HPF Urine Opiates Screen NEGATIVE NEGATIVE Urine Barbiturates Screen NEGATIVE NEGATIVE Urine Phencyclidine Screen NEGATIVE NEGATIVE Urine Amphetamines Screen NEGATIVE NEGATIVE Urine Benzodiazepines Screen NEGATIVE NEGATIVE Urine Cocaine Screen NEGATIVE NEGATIVE Urine Marijuana (THC) Screen NEGATIVE NEGATIVE Erythrocyte Sedimentation Rate 24 H 0-15 MM/HR Lactate Dehydrogenase 185 81-234 U/L C-Reactive Protein, Quantitative 7.00 H 0.5-3.0 mg/L Procalcitonin < 0.05 L 0.05-0.5 ng/mL Current Medications Medications (Trade) Dose Ordered Sig/Isatu Route PRN Reason Start Time Stop Time Status Last Admin Dose Admin Acetaminophen (TYLenol 325MG TAB) 650 mg Q6H PRN PO MILD PAIN (1-3) 05/18/24 14:00 06/17/24 13:59 Acetaminophen/ Hydrocodone Bitart (NORco 5/325MG) 1 tab Q4H PRN PO NEEDED FOR PAIN 1-5 05/18/24 20:00 05/23/24 19:59 Acetaminophen/ Hydrocodone Bitart (NORco 5/325MG) 2 tab Q4H PRN PO NEEDED FOR PAIN 6-10 05/18/24 20:00 05/23/24 19:59 Cefepime HCl (MAXipime 2 gm vial) 2 gm Q12H IVPB 05/18/24 18:00 05/18/24 16:58 DC Ceftriaxone Sodium (Rocephin 2gm Inj) 2 gm Q24H IVPB 05/18/24 17:00 05/28/24 16:59 05/18/24 17:51 2 GM Diphenhydramine HCl (BENAdryl INJ) 25 mg Q6H PRN IVP ITCHING 05/18/24 20:00 06/17/24 19:59 Famotidine (Pepcid 20mg Vial) 20 mg BID IV 05/18/24 21:00 06/17/24 20:59 05/19/24 08:49 20 MG Ketorolac Tromethamine (toRADol) 15 mg Q12H PRN IV MODERATE PAIN (4-6) 05/18/24 14:00 05/18/24 19:44 DC Ketorolac Tromethamine (toRADol) 30 mg Q6H PRN IV BREAKTHROUGH PAIN (4-6) 05/18/24 20:00 05/23/24 19:59 05/18/24 20:43 30 MG Morphine Sulfate (morPHINE 2MG SYG) 2 mg Q6H PRN IVP SEVERE PAIN (7-10) 05/18/24 14:00 05/18/24 19:44 DC Sodium Chloride 1,000 ml @ 75 mls/hr [id number] IV 05/18/24 14:00 06/17/24 13:59 05/19/24 04:41 75 MLS/HR Sodium Chloride 1,000 ml @ 100 mls/hr Q10H IV 05/18/24 20:00 05/18/24 23:45 DC Vancomycin HCl 250 ml @ 125 mls/hr Q8H IV 05/18/24 22:00 05/28/24 21:59 05/19/24 05:24 125 MLS/HR Vancomycin HCl (Vancomycin Protocol) 1 each AD IV 05/18/24 14:00 06/01/24 13:59 DIAGNOSTICS / RADIOLOGY: [ ] ASSESSMENT: Progressive right Fourth digit erythema, swelling with concerns for progressive complicated cellulitis/ abscess, POA UTI, POA Failure of outpatient therapy, POA Prior history of hiatal hernia repair in 2023, POA PLAN: Patient remains admitted to the medical floor Continue current pain medication with the adjustment as needed Continue to follow orthopedic input recommendation Follow ID input recommendation Patient to received tetanus toxoid Results of culture positive for Gram-positive cocci, follow final identification and sensitivity All labs will be repeated in the morning Plan of action discussed, all questions answered, agreed and understood the information provided. JANN CONCEPCION MD May 19, 2024 12:51
[2024-05-19] MEDS: DIPH,PERTUSS(ACELL),TET VAC/PF 0.5 ML VIAL IM ONE (12:53)
--- NOTE | 2024-05-19 13:00 | NUR ---
DCP -- Home Patient states lives with Marcel Mas Jr, Father [phone] in a first floor apartment with a walk in shower. 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 States able to complete ADL's on his own. Denies medical devices. Denies home health services, home care provider or dialysis. PCP - [facility] - [facility], [place]. Upon discharge, states Marcel Mas Jr, Father [phone] At this time, does not foresee additional medical needs. Referred to Financial Counseling. Addendum: 05/19/24 at 1303 by RENE GORDON RN CM Amended: Links added.
--- NOTE | 2024-05-19 17:39 | PN ---
Postop day 1. Status post I and D of finger abscess right hand 4th digit. Feeling much better with decrease in the pain. Cultures from the studies revealed the presence of Gram positive cocci in pairs, chains and in clusters. Dressing is intact. Distal capillary refill is normal. Assessment: Status post I and D of right ring digit abscess dorsal PIP joint. No involvement of the joint. Plan: Hospitalist will dismissed once identification is completed as well as sensitivities. The patient will be follow-up in my office on Thursday for a dressing change, and a week after for stitch removal. Vitals/Labs Vital Signs Date Time Temp Pulse Resp B/P (MAP) Pulse Ox O2 Delivery O2 Flow Rate FiO2 05/19/24 16:18 97.9 69 19 120/60 98 Room Air 05/19/24 08:50 0 21 Laboratory Tests 05/19/24 03:50 Microbiology Date/Time Source Procedure Growth Status 05/18/24 18:57 Abscess Finger Gram Stain - Final Complete Medications Current Medications Lactated Ringer's 1,000 ml @ 0 mls/hr ONCE ONCE IV Last administered on 05/18/24at 14:34; Start 05/18/24 at 13:00; Stop 05/18/24 at 13:03; Status DC Vancomycin HCl 1 gm ONCE ONCE IV; Start 05/18/24 at 13:00; Stop 05/18/24 at 13:01; Status Cancel Piperacillin Sod/ Tazobactam Sod 3.375 gm ONCE ONCE IV; Start 05/18/24 at 15:00; Stop 05/18/24 at 14:17; Status DC Sodium Chloride 1,000 ml @ 75 mls/hr [id number] IV Last administered on 05/19/24at 15:30; Start 05/18/24 at 14:00; Stop 06/17/24 at 13:59 Acetaminophen 650 mg Q6H PRN PO; Start 05/18/24 at 14:00; Stop 06/17/24 at 13:59 Famotidine 20 mg BID IV Last administered on 05/19/24at 08:49; Start 05/18/24 at 21:00; Stop 06/17/24 at 20:59 Ketorolac Tromethamine 15 mg Q12H PRN IV; Start 05/18/24 at 14:00; Stop 05/18/24 at 19:44; Status DC Morphine Sulfate 2 mg Q6H PRN IVP; Start 05/18/24 at 14:00; Stop 05/18/24 at 19:44; Status DC Cefepime HCl 2 gm Q12H IVPB; Start 05/18/24 at 18:00; Stop 05/18/24 at 16:58; Status DC Vancomycin HCl 1 each AD IV; Start 05/18/24 at 14:00; Stop 06/01/24 at 13:59 Vancomycin HCl 500 ml @ 125 mls/hr ONCE ONCE IV Last administered on 05/18/24at 15:27; Start 05/18/24 at 14:30; Stop 05/18/24 at 18:29; Status DC Vancomycin HCl 250 ml @ 125 mls/hr Q8H IV Last administered on 05/19/24at 15:30; Start 05/18/24 at 22:00; Stop 05/28/24 at 21:59 Ceftriaxone Sodium 2 gm Q24H IVPB Last administered on 05/18/24at 17:51; Start 05/18/24 at 17:00; Stop 05/28/24 at 16:59 Gadoterate Meglumine 10 mmol STK-MED ONCE IV; Start 05/18/24 at 17:02; Stop 05/18/24 at 17:02; Status DC Lidocaine HCl 100 mg STK-MED ONCE .ROUTE; Start 05/18/24 at 18:19; Stop 05/18/24 at 18:20; Status DC Succinylcholine Chloride 200 mg STK-MED ONCE .ROUTE; Start 05/18/24 at 18:20; Stop 05/18/24 at 18:20; Status DC Propofol 200 mg STK-MED ONCE IV; Start 05/18/24 at 18:20; Stop 05/18/24 at 18:20; Status DC Midazolam HCl 2 mg STK-MED ONCE .ROUTE; Start 05/18/24 at 18:20; Stop 05/18/24 at 18:21; Status DC Rocuronium [place] 50 mg STK-MED ONCE .ROUTE; Start 05/18/24 at 18:21; Stop 05/18/24 at 18:21; Status DC Fentanyl Citrate 100 mcg STK-MED ONCE .ROUTE; Start 05/18/24 at 18:48; Stop 05/18/24 at 18:48; Status DC Cefazolin Sodium 1 gm STK-MED ONCE .ROUTE Last administered on 05/18/24at 18:57; Start 05/18/24 at 18:53; Stop 05/18/24 at 18:54; Status DC Sodium Chloride 1,000 ml @ 100 mls/hr Q10H IV; Start 05/18/24 at 20:00; Stop 05/18/24 at 23:45; Status DC Acetaminophen/ Hydrocodone Bitart 1 tab Q4H PRN PO; Start 05/18/24 at 20:00; Stop 05/23/24 at 19:59 Acetaminophen/ Hydrocodone Bitart 2 tab Q4H PRN PO; Start 05/18/24 at 20:00; Stop 05/23/24 at 19:59 Ketorolac Tromethamine 30 mg Q6H PRN IV Last administered on 05/18/24at 20:43; Start 05/18/24 at 20:00; Stop 05/23/24 at 19:59 Diphenhydramine HCl 25 mg Q6H PRN IVP; Start 05/18/24 at 20:00; Stop 06/17/24 at 19:59 Meperidine HCl 50 mg STK-MED ONCE .ROUTE Last administered on 05/18/24at 20:02; Start 05/18/24 at 19:52; Stop 05/18/24 at 19:52; Status DC Diphtheria/ Tetanus/Acell Pertussis 0.5 ml ONCE ONCE IM Last administered on 05/19/24at 12:53; Start 05/19/24 at 11:00; Stop 05/19/24 at 11:01; Status DC DEEP MATTHEWS MD May 19, 2024 17:39
[2024-05-20] VITALS (7 sets, daily range): BP systolic 127–153; BP diastolic 66–88; PULSE 55–88; RESP 17–19; TEMP 97.4–98.5; O2SAT 97
[2024-05-20 04:36] LABS: HEMATOCRIT 38.9 % (42-54); MEAN CORPUSCULAR HEMOGLOBIN 29.6 pg (27.0-33.0); MEAN CORPUSCULAR HGB CONC 33.9 g/dL (32.0-36.0); MEAN CORPUSCULAR VOLUME 87.2 fL (79-99); RED BLOOD CELL COUNT(AUTO) 4.46 MIL/uL (4.50-6.20); RED CELL DISTRIBUTION WIDTH 12.1 % (11.0-15.5); WHITE BLOOD COUNT (AUTO) 5.1 K/uL (4.8-10.8)
[2024-05-20 04:58] LABS: ALBUMIN 3.3 g/dL (3.5-5.0); BILIRUBIN,TOTAL 0.4 mg/dL (0.2-1.0); CREATININE 0.9 mg/dL (0.5-1.3); MAGNESIUM 1.9 mg/dL (1.80-2.40); TOTAL PROTEIN, SERUM 6.6 g/dL (6.0-8.3)
--- NOTE | 2024-05-20 11:02 | PN ---
[facility] PROGRESS NOTE Date of Service: May 20, 2024 Time of Service: 11:00 SUBJECTIVE: Patient is seen and examined at bedside, comfortably in bed, he is status post irrigation and debridement 4th finger right hand, by orthopedic physician today, tolerated the procedure well, he is getting IV antibiotics, getting good pain control with current medical management. Alert oriented x3. Results of culture positive for Gram-positive cocci, discussed with the patient. 05/20 patient is seen and examined at bedside, case discussed with the RN, no acute events overnight, remains hemodynamically stable, afebrile, saturating normal on room air. Results of chlamydia and gonococcus negative. Liver enzymes mildly elevated. During my visit the patient is comfortably sitting in the chair, getting good pain control with current medical management, getting IV antibiotics. REVIEW OF SYSTEMS CONSTITUTIONAL: Denies fevers, chills, or night sweats. No unintentional weight loss reported. NEUROLOGICAL: Denies headache, amaurosis fugax, motor weakness, sensory deficit, vertigo/spinning sensation, gait abnormalities, or tremors. ENT: No hearing loss, otalgia, otorrhea, rhinitis, rhinorrhea, hoarseness, or sore throat. CARDIOVASCULAR: Denies any exertional angina, dyspnea on exertion, orthopnea, paroxysmal nocturnal dyspnea, palpitations, life-threatening arrhythmias, claudication. PULMONARY: Denies any shortness of breath, cough, phlegm/sputum, hemoptysis, pleuritic chest pain. SLEEP: Denies morning headaches, daytime somnolence or napping. Denies difficulty falling asleep, staying asleep, waking from sleep. Denies knowledge of snoring. GASTROINTESTINAL: Denies any type of dysphagia to either liquids or solids. D enies nausea, vomiting, pyrosis, early satiety, abdominal pain, diarrhea, constipation, or changes in stool consistency or caliber. Denies coffee-ground emesis, hematemesis, hematochezia, or melanotic stools. GENITOURINARY: Denies frequency, urgency, nocturia, hematuria or incontinence (Storage/Irritative symptoms.) Low urinary stream, straining to void, urinary intermittency or hesitancy, splitting of the voiding stream, terminal dribbling. ENDOCRINOLOGIC: Denies polyuria, polydipsia, polyphagia or heat/cold intolerances. HEMATOLOGIC: Denies thrombophilia/previous clots, or coagulopathy/bleeding disorders. ONCOLOGIC: Denies personal history of malignancy. DERMATOLOGIC: Redness, swelling, pain involving the 4th finger of the right hand PSYCHIATRIC: Denies any suicidal or homicidal ideation. Denies hallucinations. PHYSICAL EXAM GENERAL APPEARANCE: The patient is awake, alert, and oriented, in no acute cardiopulmonary distress. NEUROLOGICAL: Cranial nerves II-XII grossly intact. Motor is 5/5 in bilateral upper and lower extremities proximal to distal. No sensory deficits. HEENT: Face is symmetric. Pupils are equal and reactive. Extraocular movements are intact. NECK: Supple. No JVD. No thyromegaly. No submental, submandibular, pre- /postauricular, occipital or supraclavicular lymphadenopathy. CHEST: Normal chest expansion. No Telemetry. LUNGS: Absence of any rales, rhonchi or any wheezing. CARDIOVASCULAR: Regular. S1 and S2 normal. No appreciable rubs, murmurs or gallops. ABDOMEN: Soft, nontender, and nondistended. There is no rebound, voluntary guarding, or rigidity. : Deferred. No Hdz. EXTREMITIES: Erythema tenderness and pain to the right 4th digit dorsal side increase with palpation and movement, pain involved with flexion and extension of the 4th digit of the right. Neurovascularly intact distally. No obvious open wounds or ulcerations. SKIN: As noted above Vital Signs (last 8hr) Date Time Temp Pulse Resp B/P (MAP) Pulse Ox O2 Delivery O2 Flow Rate FiO2 05/20/24 08:00 97.3 74 19 153/87 96 Room Air 05/20/24 04:27 98.1 57 18 133/70 98 Room Air LABS: Laboratory: Test 05/20/24 03:57 05/19/24 12:34 05/19/24 03:50 05/18/24 14:45 Range/Units White Blood Count 5.1 4.8-10.8 K/uL Red Blood Count 4.46 L 4.50-6.20 MIL/uL Hemoglobin 13.2 L 14.0-18.0 g/dL Hematocrit 38.9 L 42-54 % Mean Corpuscular Volume 87.2 79-99 fL Mean Corpuscular Hemoglobin 29.6 27.0-33.0 pg Mean Corpuscular Hemoglobin Concent 33.9 32.0-36.0 g/dL Red Cell Distribution Width 12.1 11.0-15.5 % Platelet Count 193 130-400 K/uL Mean Platelet Volume 11.4 H 7.5-10.5 fL Nucleated Red Blood Cells 0.0 0.0-0.19 % Sodium Level 142 136-145 mmol/L Potassium Level 4.0 3.5-5.1 mmol/L Chloride Level 105 101-111 mmol/L Carbon Dioxide Level 29 21-32 mmol/L Blood Urea Nitrogen 13 7-18 mg/dL Creatinine 0.9 0.5-1.3 mg/dL Glomerular Filtration Rate Calc 121 >90 mL/min Random Glucose 100 70-105 mg/dL Total Calcium 8.4 L 8.5-10.1 mg/dL Magnesium Level 1.90 1.80-2.40 mg/dL Total Bilirubin 0.4 0.2-1.0 mg/dL Aspartate Amino Transf (AST/SGOT) 54 H 10-37 U/L Alanine Aminotransferase (ALT/SGPT) 137 H 12-78 U/L Alkaline Phosphatase 84 50-136 U/L Total Protein 6.6 6.0-8.3 g/dL Albumin 3.3 L 3.5-5.0 g/dL Vancomycin Level Trough 11.0 10.0-20.0 UG/ML Immature Granulocyte % (Auto) 0.3 0-1 % Neutrophils (%) (Auto) 66.7 40.0-77.0 % Lymphocytes (%) (Auto) 23.0 21.0-51.0 % Monocytes (%) (Auto) 8.1 3.0-13.0 % Eosinophils (%) (Auto) 1.4 0.0-8.0 % Basophils (%) (Auto) 0.5 0.0-5.0 % Neutrophils # (Auto) 5.9 1.8-7.7 K/uL Lymphocytes # (Auto) 2.0 1.0-4.8 K/uL Monocytes # (Auto) 0.7 0.1-1.0 K/uL Eosinophils # (Auto) 0.12 0.00-0.70 K/uL Basophils # (Auto) 0.04 0.00-0.20 K/uL Absolute Immature Granulocyte (auto 0.03 0-1 K/uL Urine Color LIGHT-YELLOW YELLOW Urine Appearance CLEAR CLEAR Urine pH 6.0 5.0-8.0 Urine Specific [place] 1.028 1.001-1.031 Urine Protein NEGATIVE NEGATIVE mg/dL Urine Glucose (UA) NEGATIVE NEGATIVE mg/dL Urine Ketones NEGATIVE NEGATIVE mg/dL Urine Occult Blood NEGATIVE NEGATIVE Urine Nitrate NEGATIVE NEGATIVE Urine Bilirubin NEGATIVE NEGATIVE mg/dL Urine Urobilinogen 2.0 H 0.2-1.0 mg/dL Urine Leukocyte Esterase 250 H NEGATIVE Andrzej/uL Urine RBC 2-5 H 0-1 /HPF Urine WBC 26-50 H 0-1 /HPF Urine Squamous Epithelial Cells RARE 0-2 /HPF Urine Bacteria RARE None Seen /HPF Urine Opiates Screen NEGATIVE NEGATIVE Urine Barbiturates Screen NEGATIVE NEGATIVE Urine Phencyclidine Screen NEGATIVE NEGATIVE Urine Amphetamines Screen NEGATIVE NEGATIVE Urine Benzodiazepines Screen NEGATIVE NEGATIVE Urine Cocaine Screen NEGATIVE NEGATIVE Urine Marijuana (THC) Screen NEGATIVE NEGATIVE Test 05/18/24 13:36 Range/Units Erythrocyte Sedimentation Rate 24 H 0-15 MM/HR Lactate Dehydrogenase 185 81-234 U/L C-Reactive Protein, Quantitative 7.00 H 0.5-3.0 mg/L Procalcitonin < 0.05 L 0.05-0.5 ng/mL Current Medications Medications (Trade) Dose Ordered Sig/Isatu Route PRN Reason Start Time Stop Time Status Last Admin Dose Admin Acetaminophen (TYLenol 325MG TAB) 650 mg Q6H PRN PO MILD PAIN (1-3) 05/18/24 14:00 06/17/24 13:59 Acetaminophen/ Hydrocodone Bitart (NORco 5/325MG) 1 tab Q4H PRN PO NEEDED FOR PAIN 1-5 05/18/24 20:00 05/23/24 19:59 Acetaminophen/ Hydrocodone Bitart (NORco 5/325MG) 2 tab Q4H PRN PO NEEDED FOR PAIN 6-10 05/18/24 20:00 05/23/24 19:59 Cefepime HCl (MAXipime 2 gm vial) 2 gm Q12H IVPB 05/18/24 18:00 05/18/24 16:58 DC Ceftriaxone Sodium (Rocephin 2gm Inj) 2 gm Q24H IVPB 05/18/24 17:00 05/28/24 16:59 05/19/24 18:15 2 GM Diphenhydramine HCl (BENAdryl INJ) 25 mg Q6H PRN IVP ITCHING 05/18/24 20:00 06/17/24 19:59 Famotidine (Pepcid 20mg Vial) 20 mg BID IV 05/18/24 21:00 06/17/24 20:59 05/19/24 20:06 20 MG Ketorolac Tromethamine (toRADol) 15 mg Q12H PRN IV MODERATE PAIN (4-6) 05/18/24 14:00 05/18/24 19:44 DC Ketorolac Tromethamine (toRADol) 30 mg Q6H PRN IV BREAKTHROUGH PAIN (4-6) 05/18/24 20:00 05/23/24 19:59 05/19/24 21:39 30 MG Morphine Sulfate (morPHINE 2MG SYG) 2 mg Q6H PRN IVP SEVERE PAIN (7-10) 05/18/24 14:00 05/18/24 19:44 DC Sodium Chloride 1,000 ml @ 75 mls/hr [id number] IV 05/18/24 14:00 06/17/24 13:59 05/20/24 05:51 75 MLS/HR Sodium Chloride 1,000 ml @ 100 mls/hr Q10H IV 05/18/24 20:00 05/18/24 23:45 DC Vancomycin HCl 250 ml @ 125 mls/hr Q8H IV 05/18/24 22:00 05/28/24 21:59 05/20/24 05:51 125 MLS/HR Vancomycin HCl (Vancomycin Protocol) 1 each AD IV 05/18/24 14:00 06/01/24 13:59 DIAGNOSTICS / RADIOLOGY: [ ] ASSESSMENT: Progressive right Fourth digit erythema, swelling with concerns for progressive complicated cellulitis/ abscess, POA UTI, POA Failure of outpatient therapy, POA Prior history of hiatal hernia repair in 2023, POA PLAN: Patient remains admitted to the medical floor Continue current pain medication with the adjustment as needed Continue to follow orthopedic input recommendation Continue local wound care ID input noted and appreciated Patient received tetanus toxoid yesterday Results of culture positive for Gram-positive cocci, follow final identification and sensitivity All labs will be repeated in the morning Plan of action discussed, all questions answered, agreed and understood the information provided. JANN CONCEPCION MD May 20, 2024 11:02
[2024-05-20] MEDS: LISINOPRIL 20 MG TABLET PO SCH (13:25)
--- NOTE | 2024-05-20 17:19 | PN ---
INFECTIOUS DISEASE PROGRESS NOTE Date of Service: May 20, 2024 SUBJECTIVE: This 28-year-old male patient is being seen today at bedside. Awake, alert and oriented x3. no fever or chills. Patient denies chest pain or shortness for breath. Wound culture of the right ring finger is growing Gram-positive cocci bacteria. Patient will continue on vancomycin. He denies any dysuria or hematuria no dark constipation. Whenever plan of care with patient state understanding. PHYSICAL EXAM EYES: Anicteric. Pupils equal and reactive. HENT: No oral thrush seen, moist Oral mucosa. NECK: Supple, no JVD or thyromegaly. LUNGS: Good air entry. No rales, no rhonchi. CARDIOVASCULAR: S1, S2 regular. No murmur heard. ABDOMEN: Soft, non tender, bowel sounds present, no organomegaly CENTRAL NERVOUS SYSTEM: Awake, alert, oriented x 3. SKIN: No rashes, no swelling. LYMPHATICS: No peripheral lymphadenopathy MUSCULOSKELETAL: No joint swelling, erythema or tenderness. EXTREMITIES: No cyanosis or clubbing. Right 4th finger incision with sutures. BACK: No deformity, no pressure ulcer. GENITOURINARY: No dysuria or hematuria. Vital Sign (Last 12 Hours) 05/20/24 05/20/24 05/20/24 05/20/24 08:00 08:00 12:00 16:00 Temp 97.3 98.4 98.4 Pulse 74 88 60 Resp 19 18 18 B/P (MAP) 153/87 136/76 133/76 Pulse Ox 96 99 100 O2 Delivery Room Air* Room Air Room Air Room Air O2 Flow Rate 0 FiO2 21 Intake & Output (last 24hrs) 05/19/24 05/19/24 05/20/24 15:00 23:00 07:00 Intake Total 980 ml Balance 980 ml LABS: Laboratory: Test 05/20/24 12:46 05/20/24 03:57 05/19/24 03:50 Range/Units Vancomycin Level Trough 14.2 # 10.0-20.0 UG/ML White Blood Count 5.1 4.8-10.8 K/uL Red Blood Count 4.46 L 4.50-6.20 MIL/uL Hemoglobin 13.2 L 14.0-18.0 g/dL Hematocrit 38.9 L 42-54 % Mean Corpuscular Volume 87.2 79-99 fL Mean Corpuscular Hemoglobin 29.6 27.0-33.0 pg Mean Corpuscular Hemoglobin Concent 33.9 32.0-36.0 g/dL Red Cell Distribution Width 12.1 11.0-15.5 % Platelet Count 193 130-400 K/uL Mean Platelet Volume 11.4 H 7.5-10.5 fL Nucleated Red Blood Cells 0.0 0.0-0.19 % Sodium Level 142 136-145 mmol/L Potassium Level 4.0 3.5-5.1 mmol/L Chloride Level 105 101-111 mmol/L Carbon Dioxide Level 29 21-32 mmol/L Blood Urea Nitrogen 13 7-18 mg/dL Creatinine 0.9 0.5-1.3 mg/dL Glomerular Filtration Rate Calc 121 >90 mL/min Random Glucose 100 70-105 mg/dL Total Calcium 8.4 L 8.5-10.1 mg/dL Magnesium Level 1.90 1.80-2.40 mg/dL Total Bilirubin 0.4 0.2-1.0 mg/dL Aspartate Amino Transf (AST/SGOT) 54 H 10-37 U/L Alanine Aminotransferase (ALT/SGPT) 137 H 12-78 U/L Alkaline Phosphatase 84 50-136 U/L Total Protein 6.6 6.0-8.3 g/dL Albumin 3.3 L 3.5-5.0 g/dL Immature Granulocyte % (Auto) 0.3 0-1 % Neutrophils (%) (Auto) 66.7 40.0-77.0 % Lymphocytes (%) (Auto) 23.0 21.0-51.0 % Monocytes (%) (Auto) 8.1 3.0-13.0 % Eosinophils (%) (Auto) 1.4 0.0-8.0 % Basophils (%) (Auto) 0.5 0.0-5.0 % Neutrophils # (Auto) 5.9 1.8-7.7 K/uL Lymphocytes # (Auto) 2.0 1.0-4.8 K/uL Monocytes # (Auto) 0.7 0.1-1.0 K/uL Eosinophils # (Auto) 0.12 0.00-0.70 K/uL Basophils # (Auto) 0.04 0.00-0.20 K/uL Absolute Immature Granulocyte (auto 0.03 0-1 K/uL ASSESSMENT: Right 4th finger cellulitis. Right 4th finger septic arthritis, status post I&D and debridement. Asymptomatic Urinary tract infection. Hypertension. Obesity. Staph infection PLAN: Discontinue Rocephin Continue vancomycin Will give tetanus shot. Wound care as recommended by Orthopedics surgeon. Continue pain management. We will follow up on the culture results. Thank you for allowing ID to participate in the care of this patient. This case was reviewed and discussed with my supervising physician and the above assessment and plan was formulated and agreed upon. WILMA STAFFORD AUTOMATIC WINDER OPERATOR May 20, 2024 17:19
[2024-05-20] MEDS: HYDROcodone/APAP 5/325 1 TAB TABLET PO PRN (23:14)
[2024-05-21 00:36] VITALS: BP 133/77; PULSE 71; RESP 19; TEMP 97.6
[2024-05-21 05:11] VITALS: BP 134/78; PULSE 58; RESP 18; TEMP 97.8
[2024-05-21 08:00] VITALS: BP 133/80; PULSE 51; RESP 18; TEMP 98.4; O2SAT 98
[2024-05-21] MEDS: acetaMINOPHEN 325 MG TAB PO PRN (10:00)
[2024-05-21 12:04] VITALS: BP 133/76; PULSE 69; RESP 18; TEMP 97.9
--- NOTE | 2024-05-21 13:34 | PN ---
INFECTIOUS DISEASE PROGRESS NOTE Date of Service: May 21, 2024 SUBJECTIVE: This is 28-year-old male patient who was seen at bedside in room 328. Patient is awake, alert and oriented x 3 and sitting up on the edge of the bed. The final wound culture results from the right 4th finger came back positive for methicillin-resistant Staphylococcus aureus. Patient was updated with these findings. Patient is afebrile, temperature is 98.4. From Infectious Disease standpoint patient can be discharged on doxycycline for 10 days. Prescription was written. PHYSICAL EXAM EYES: Anicteric. Pupils equal and reactive. HENT: No oral thrush seen, moist Oral mucosa. NECK: Supple, no JVD or thyromegaly. LUNGS: Good air entry. No rales, no rhonchi. CARDIOVASCULAR: S1, S2 regular. No murmur heard. ABDOMEN: Soft, non tender, bowel sounds present, no organomegaly CENTRAL NERVOUS SYSTEM: Awake, alert, oriented x 3. SKIN: No rashes, no swelling. LYMPHATICS: No peripheral lymphadenopathy MUSCULOSKELETAL: No joint swelling, erythema or tenderness. EXTREMITIES: No cyanosis or clubbing. Right 4th finger incision with sutures. BACK: No deformity, no pressure ulcer. GENITOURINARY: No dysuria or hematuria. Vital Sign (Last 12 Hours) 05/21/24 05/21/24 05/21/24 05:11 08:00 12:04 Temp 97.9 98.4 97.9 Pulse 58 51 69 Resp 18 18 18 B/P (MAP) 134/78 133/80 133/76 Pulse Ox 98 98 99 O2 Delivery Room Air Room Air Room Air LABS: Laboratory: Test 05/20/24 12:46 05/20/24 03:57 Range/Units Vancomycin Level Trough 14.2 # 10.0-20.0 UG/ML White Blood Count 5.1 4.8-10.8 K/uL Red Blood Count 4.46 L 4.50-6.20 MIL/uL Hemoglobin 13.2 L 14.0-18.0 g/dL Hematocrit 38.9 L 42-54 % Mean Corpuscular Volume 87.2 79-99 fL Mean Corpuscular Hemoglobin 29.6 27.0-33.0 pg Mean Corpuscular Hemoglobin Concent 33.9 32.0-36.0 g/dL Red Cell Distribution Width 12.1 11.0-15.5 % Platelet Count 193 130-400 K/uL Mean Platelet Volume 11.4 H 7.5-10.5 fL Nucleated Red Blood Cells 0.0 0.0-0.19 % Sodium Level 142 136-145 mmol/L Potassium Level 4.0 3.5-5.1 mmol/L Chloride Level 105 101-111 mmol/L Carbon Dioxide Level 29 21-32 mmol/L Blood Urea Nitrogen 13 7-18 mg/dL Creatinine 0.9 0.5-1.3 mg/dL Glomerular Filtration Rate Calc 121 >90 mL/min Random Glucose 100 70-105 mg/dL Total Calcium 8.4 L 8.5-10.1 mg/dL Magnesium Level 1.90 1.80-2.40 mg/dL Total Bilirubin 0.4 0.2-1.0 mg/dL Aspartate Amino Transf (AST/SGOT) 54 H 10-37 U/L Alanine Aminotransferase (ALT/SGPT) 137 H 12-78 U/L Alkaline Phosphatase 84 50-136 U/L Total Protein 6.6 6.0-8.3 g/dL Albumin 3.3 L 3.5-5.0 g/dL ASSESSMENT: Right 4th finger septic arthritis, status post I&D and debridement on 05/18/2024.. Infection with methicillin-resistant Staphylococcus aureus. Right 4th finger cellulitis. Asymptomatic Urinary tract infection. Hypertension. Obesity. Staph infection PLAN: From Infectious Disease standpoint patient can be discharged to home on do xycycline x 10 days. Prescription was written and given to nurse. This case was reviewed and discussed with my supervising physician and the above assessment and plan was formulated and agreed upon. ATTESTATION BY PHYSICIAN I have seen and examined the patient. I reviewed the documentation, medical decision making, and treatment plan as noted by the mid-level provider above. I agree with the findings and plan of care. FREDERICK FALLON MD, MIRTA L BUSINESS OBJECTS ARCHITECT May 21, 2024 13:34
--- NOTE | 2024-05-21 14:15 | DS ---
Discharge Summary Hospital Course Summary: 28-year-old male with no significant past medical history who presented to the ER for further evaluation of 4th digit swelling and redness of the right hand ongoing for the past 4-5 days. Patient was seen in the ER one day prior to presenting again and received a dose of IV Ancef and was discharged on a course of Keflex. Patient denied any trauma, injury, animal bite to the 4th finger. 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 Denied significant smoking, alcohol consumption or illicit drug use. Patient was seen by Dr. Barfield with recommendations for antibiotic therapy for management of cellulitis. Patient stated that pain has progressively worsened and is worse with flexion of the finger. Redness and swelling has worsened as well. Patient denied any family history of malignancy. On presentation to the hospital, patient was noted to be afebrile with temperature of 98.8 F, blood pressure of 153/95. Patient had a x-ray of the fingers done yesterday where patient was noted to have marrow irregularity involving the 3rd proximal phalangeal head with recommendations for MRI. Patient admitted for broad-spectrum IV antibiotics with vancomycin/cefepime, MRI of the hand ordered. Consultation with Dr. Barfield with Orthopedics requested as well as Infectious Disease. MRI showed cellulitis of 4th finger, no evidence of osteomyelitis. Patient was taken to the operating room 05/18/2024 and underwent right ring di git incision and drainage of subcutaneous abscess, excisional debridement and irrigation with wound closure. Results of wound culture positive for Gram-positive cocci, final identification Staphylococcus aureus-MRSA. Today patient is alert oriented x3, hemodynamically stable, afebrile, plan for the patient to be discharged home. Barkeeper(s): Orthopedic physician and Infectious Disease. Procedure(s): Patient was taken to the operating room 05/18/2024 and underwent right ring digit incision and drainage of subcutaneous abscess, excisional debridement and irrigation with wound closure. Assessment/Plan: Final diagnosis Progressive right Fourth digit erythema, swelling with concerns for progressive complicated cellulitis/ abscess, POA Status post right ring digit incision and drainage of subcutaneous abscess, excisional debridement and irrigation with wound closure 05/18/2024 Wound culture positive for Staphylococcus aureus-MRSA UTI, ruled out POA Failure of outpatient therapy, POA Prior history of hiatal hernia repair in 2023, POA Discharge Instructions: Patient to follow up with the orthopedic physician as an outpatient on Thursday. Return to the hospital if condition changes. Patient agreed with plan and understood the information provided. Home Medications: Active Scripts Cephalexin Monohydrate (Keflex) 500 Mg Cap, 500 MG PO QID for 10 Days, #40 CAP Prov:ESPERANZAANASTASIA HYDRATOR OPERATOR 05/17/24 Reported Medications Lisinopril (Lisinopril) 20 Mg Tablet, 1 TAB PO DAILY for 30 Days, #30 TAB 0 Refills 05/18/24 Time spent arranging discharge: 31-60 minutes JANN CONCEPCION MD May 21, 2024 14:15
--- NOTE | 2024-05-21 14:30 | NUR ---
PATIENT IS DISCHARGED. IV REMOVED. EDUCATION GIVEN ON DIAGNOSIS, AFTERCARE, AND FOLLOW UP APPOINTMENT. SCRIPT GIVEN TO PATIENT AND EDUCATED ON THE COURSE OF THE ANTIBIOTIC.
== END 2024-05-21 14:30 | disposition home or self-care (01) | DRG 580 ==
LOC: EDH 12:51 → EDHIP 12:52 → 3DH 20:31
PROVIDERS: ADMIT Internal Medicine; ATTEND Internal Medicine
PROC: 0JBJ0ZZ Excision of Right Hand Subcutaneous Tissue and Fascia, Open Approach (ICD-10-PCS; principal; 2024-05-18 17:30)
DX: L03.011 Cellulitis of right finger (principal); M00.9 Pyogenic arthritis, unspecified; N39.0 Urinary tract infection, site not specified; E66.9 Obesity, unspecified; I10 Essential (primary) hypertension; B95.62 Methicillin resistant Staphylococcus aureus infection as the cause of diseases classified elsewhere
CPT/HCPCS: 36415; 73220; 80048; 80053; 80202; 80305; 81001; 83615; 83735; 84145; 85025; 85027; 85651; 86140; 87040; 87070; 87076; 87086; 87186; 87205; 87491; 87591; 90715; 99285; A4450; A4606; G0378; J0330; J0690; J0696; J1885; J2003; J2175; J2250; J2704; J3010; J3370; J3490; J7030; J7120; A4222; A4223; A4600; A4649; A4663; A6223; A6445; A9575